=== PATIENT | female | born 1980 | race Caucasian/White ===

== ENCOUNTER 2021-11-05 14:31 | Emergency (ER) | payer OTHER ==
[~2021-11-05 14:31] MED LIST: PROVENTIL HFA6.7 GM INH; ROBITUSSIN AC480 ML PO
[2021-11-05] MEDS ORDERED: IBUPROFEN800 MG PO (16:35)
== END 2021-11-05 18:36 | disposition home or self-care (01) ==
LOC: ER1 14:31
DX: S40.012A Contusion of left shoulder, initial encounter (principal); R51.9 Headache, unspecified; F17.210 Nicotine dependence, cigarettes, uncomplicated; V47.5XXA Car driver injured in collision with fixed or stationary object in traffic accident, initial encounter; Y92.410 Unspecified street and highway as the place of occurrence of the external cause
CPT/HCPCS: 70450; 71045; 72125; 73000; 73030; 93005; 99284